=== PATIENT | female | born 1970 | race Caucasian/White ===

== ENCOUNTER 2017-05-07 02:59 | Emergency (ER) | payer OTHER ==
--- NOTE | 2017-05-07 03:23 | ER Document Report ---
ED NIH Stroke Scale - NIH Stroke Scale *: 1. NIH scale should be completed with appropriate accompanying assessment tools. *: 2. The NIH should reflect what the patient is capable of doing and should not be coached by the clinician. 1a. Level of Consciousness: 0=Alert;keenly responsive -: 1=Drowsy -: 2=Obtunded -: 3=Coma/unresponsive or reflex to noxious stimuli. 1a. Responses: 0 1b. Orientation Questions: a. What month is it? -: b. How old are you? -: 0=Answers both questions correctly. -: 1=Answers one question correctly or patient is intubated or has orotracheal trauma. -: 2=Answers neither question correctly. 1b. Responses: 0 1c. Response to commands: a. Open and close eyes? -: b. Therapy Site Coordinator and release hand? -: Credit is given despite weakness. Demonstration of task is permitted. Substitute command if hands cannot be used. -: 0=Performs both tasks correctly -: 1=Performs one task correctly -: 2=Performs neither task correctly 1c. Responses: 0 2. Gaze: Establish eye contact and instruct patient to "Follow my finger" -: 0=Normal -: 1=Partial gaze palsy. Gaze is abnormal in one or both eyes, but where forced deviation or total gaze paresis is not present. -: 2=Forced deviation or total gaze paresis. 2. Responses: 0 3. Visual Rudolph: Sees fingers in all four quadrants. -: 0=No visual loss. -: 1=Partial hemianopsia. -: 2=Complete hemianopsia. -: 3=Bilateral hemianopsia (including Cortical blindness) 3. Responses: 0 4. Facial Movement: Instruct patient to: -: a. Show me your teeth -: b. Raise your eyebrows -: c. Close your eyes -: d. Smile -: 0=Normal symmetrical movement -: 1=Minor paralysis (flattened nasolabial fold, asymmetry on smiling). -: 2=Partial paralysis (total or near total paralysis of lower face). -: 3=Complete paralysis of upper and lower face 4. Responses: 2 5. Motor functions (left arm): Alternate sides and extend each arm with palms down (90 degrees if sitting or 45 degrees for supine). -: 0=No drift;limb holds for full 10 seconds. -: 1=Drift; limb holds but drifts down before full 10 seconds, but does not hit bed. -: 2=Some effort against gravity; limb cannot get to or maintain position. -: 3=No effort against gravity; limb falls. -: 4=No movement. -: UN=Amputation, joint fusion, explain in comments. 5. Responses (left arm): 1 5. Motor Functions (right arm): Alternate sides and extend each arm with palms down (90 degrees if sitting or 45 degrees for supine). -: 0=No drift;limb holds for full 10 seconds. -: 1=Drift; limb holds but drifts down before full 10 seconds, but does not hit bed. -: 2=Some effort against gravity; limb cannot get to or maintain position. -: 3=No effort against gravity; limb falls. -: 4=No movement. -: UN=Amputation, joint fusion, explain in comments. 5. Responses (right arm): 0 6. Motor Functions (left leg): With patient lying supine, alternate sides and extend each leg (30 degrees always while supine). -: 0=No drift, leg holds position for full 5 seconds -: 1=Drift; leg falls before full 5 seconds but does not hit bed. -: 2=Some effort against gravity, leg falls to bed but some effort against gravity. -: 3=No effort against gravity, leg falls to bed immediately. -: 4=No movement. -: UN=Amputation, joint fusion; explain in comments. 6. Responses (left leg): 2 6. Motor Functions (right leg): With patient lying supine, alternate sides and extend each leg (30 degrees always while supine). -: 0=No drift, leg holds position for full 5 seconds -: 1=Drift; leg falls before full 5 seconds but does not hit bed. -: 2=Some effort against gravity, leg falls to bed but some effort against gravity. -: 3=No effort against gravity, leg falls to bed immediately. -: 4=No movement. -: UN=Amputation, joint fusion; explain in comments. 6. Responses (right leg): 0 7. Limb Ataxia: With eyes open instruct patient to: -: a. "Touch your finger to your nose". -: b. "Touch your heel to your melendrez" -: 0=Absent -: 1=Present in one limb. -: 2=Present in two limbs. -: UN=Amputation or joint fusion; explain in comments. 7. Responses: 1 7. If ataxia present choose as appropriate: Left leg 8. Sensory: Test sensation using pinprick or noxious stimuli. Test as many body parts as possible. -: 0=Normal;no sensory loss -: 1=Mile to moderate sensory loss (patient feels pin prick but is less sharp on affected side). -: 2=Severe or total sensory loss. 8. Responses: 1 9. Best Language: Instruct patient to: -: a. "Describe what you see in this picture." -: b. "Name the items in this picture." -: c. "Read these sentences." -: 0=No aphasia, normal -: 1=Mild to moderate aphasia. -: 2=Severe aphasia -: 3=Mute, global aphasia, no usable speech or auditory comprehension. 9. Responses: 1 10. Articulation, Dysarthia: Instruct patient to: -: "Read these words" or "Repeat these words" -: 0=Normal -: 1=Mild to moderate; patient may slur some words but can be understood without difficulty. -: 2=Severe; patients speech so slurred as to be unintelligible in the absence of dysphasia. -: UN=Intubated or other physical barrier, explain in comments. 10. Responses: 1 11. Extinction or inattention: 0=No abnormality -: 1= Visual, tactile, auditory, spatial, or personal inattention or extinction to bilateral simulation in one or the sensory modalities. -: 2=Profound delfin-inattention or delfin-inattention to more than one modality; does not recognize own hand. 11. Responses: 0 Total Score: 9
--- NOTE | 2017-05-07 03:23 | RADIOLOGY REPORT (SQ) ---
EXAM DESCRIPTION: CT HEAD WITHOUT COMPLETED DATE/TIME: 05/07/2017 3:07 am REASON FOR STUDY: stroke alert , weakness left side. History of TIA. COMPARISON: None. TECHNIQUE: Axial images acquired through the brain without intravenous contrast. Images reviewed wi th bone, brain and subdural windows. Images stored on PACS. All CT scanners at this facility use dose modulation, iterative reconstruction, and/or weight based d osing when appropriate to reduce radiation dose to as low as reasonably achievable (ALARA). [facility]: Dose Right [facility]: CareDose [facility]: Dose Right [facility]: Teradose 4D [facility]: [employer] RADIATION DOSE: mGy. LIMITATIONS: Motion artifact. FINDINGS: VENTRICLES: Normal size and contour. CEREBRUM: No mass effect. No hemorrhage. No midline shift. Normal kaminski/white matter differentiatio n. No evidence for acute territorial infarction. CEREBELLUM: No mass effect. No hemorrhage. No alteration of density. No evidence for acute infarct ion. EXTRAAXIAL SPACES: No fluid collections. ORBITS AND GLOBE: Symmetrical contour of the globes. CALVARIUM: No depressed skull fracture. PARANASAL SINUSES: Mucous retention cysts/ polyps in the right sphenoid sinus and left maxillary sinu s. Mucosal thickening in the left sphenoid sinus. SOFT TISSUES: No hematoma. IMPRESSION: No acute intracranial hemorrhage or acute territorial infarct. If clinical concern pers ists, MRI can be obtained for further evaluation. COMMENT: Pertinent positive or negative findings of the imaging study reported as a CRITICAL EXAM to REGINA TORRES DO at03:15 hours on 05/07/2017. Category of Critical Exam: Stroke alert TECHNICAL DOCUMENTATION: JOB ID: [id number] Quality ID # [id number]: Final reports with documentation of one or more dose reduction techniques (e.g., Au tomated exposure control, adjustment of the mA and/or kV according to patient size, use of iterative reconstruction technique) 2010 [employer]- All Rights Reserved
--- NOTE | 2017-05-07 03:30 | ER Document Report ---
ED General - General Chief Complaint: S/S of Possible Stroke Stated Complaint: STROKE SYMPTOMS Time Seen by Provider: 05/07/17 03:00 Notes: Patient is a 46-year-old female presents with strokelike symptoms. She has previous history of TIA but no lasting deficits. She has a history of a aortic valve replacement and is on Coumadin for this. She is followed by [facility] for this. No headache. No vomiting. Patient says that she went to bed 11 PM. She says she woke up at 2 AM and realized when she got up to walk that she was having difficulty walking and cannot hold onto her ashtray. She is on Coumadin. She is unsure when her last INR was. She says her Coumadin level does fluctuate. She denies any recent fevers or infections. No other complaints at this time. TRAVEL OUTSIDE OF THE [place] IN LAST 30 DAYS: No - Related Data Allergies/Adverse Reactions: acetaminophen [From Percocet] Allergy (Unknown, Verified 05/07/17 04:28) oxycodone [From Percocet] Allergy (Unknown, Verified 05/07/17 04:28) Past Medical History - Social History Smoking Status: Current Every Day Smoker Frequency of alcohol use: None Drug Abuse: None Family History: Reviewed & Not Pertinent Review of Systems - Review of Systems Notes: My Normal Review Basic REVIEW OF SYSTEMS: CONSTITUTIONAL : Denies fever, chills, or sweats. Denies recent illness. EENT: Denies eye, ear, throat, or mouth pain or symptoms. Denies nasal or sinus congestion. CARDIOVASCULAR: Denies chest pain. RESPIRATORY: Denies cough, cold, or chest congestion. Denies shortness of breath, difficulty breathing, or wheezing. GASTROINTESTINAL: Denies abdominal pain. Denies nausea, vomiting, or diarrhea. Denies constipation. Last BM: GENITOURINARY: Denies difficulty urinating, painful urination, burning, frequency, or blood in urine. MUSCULOSKELETAL: Denies neck or back pain or joint pain or swelling. SKIN: Denies rash or skin lesions. HEMATOLOGIC : On Coumadin. NEUROLOGICAL: Denies altered mental status or loss of consciousness. Denies headache. Left sided weakness. PSYCHIATRIC: Denies anxiety or stress or depression. ALL OTHER SYSTEMS REVIEWED AND NEGATIVE. Physical Exam - Vital signs Vitals: Temp Pulse Resp BP Pulse Ox 98.8 F 74 19 126/78 H 100 05/07/17 03:07 05/07/17 03:07 05/07/17 03:07 05/07/17 03:07 05/07/17 03:07 - Notes Notes: General Appearance: Well nourished, alert, cooperative, no acute distress, no obvious discomfort. Vitals: reviewed, See vital signs table. Head: no swelling or tenderness to the head Eyes: PERRL, EOMI, Conjuctiva clear Mouth: No decreasd moisture Throat: No tonsillar inflammation, No airway obstruction, No lymphadenopathy Neck: Supple, no neck tenderness, Lungs: No wheezing, No rales, No rhonci, No accessory muscle use, good air exchange bilaterally. Heart: Normal rate, Regular rythm, No murmur, no rub Abdomen: Normal BS, soft, No rigidity, No abdominal tenderness, No guarding, no rebound, no abdominal masses, no organomegaly Extremities: strength 5/5 in all extremities, good pulses in all extremities, no swelling or tenderness in the extremities, no edema. Skin: warm, dry, appropriate color, no rash Neuro: speech is slurred, oriented x 3, normal affect, responds appropriately to questions. Cranial nerves are affected. She has facial droop on the left side. She has good bilateral frontalis muscle movement. She does have some dysarthria when she talks. She has some drift of her left arm when she raises off the bed. She does have normal splitter head strength in left hand. She is unable to fully lift the left leg off the bed. Slight distal sensation diminishment on the left side. Course - Re-evaluation Re-evalutation: 05/07/17 03:31 I immediately evaluate the patient. We sent a CT scan. CT scan was negative for bleeding. I did talk to the patient. Her last known time well was 11 PM. This puts her outside thrombolytic window. Also she is on Coumadin which most likely will make her not a candidate for thrombolysis. I therefore called [facility] and spoke with Dr. Benjamin, neurologist, and asked her about the potential of mechanical intervention. She said that the would be happy to accept her and evaluate her to see if this is a possibility. 05/07/17 03:38 Patient's INR came back at 0.88. The suggest that she probably has not been taking her Coumadin. This would explain why she most likely has had a stroke being that she has mechanical heart valve and she is not anticoagulated. Patient is still not a candidate for thrombolytics due to the timeframe. I did explained to the patient the plan of transferring her. She is agreeable to this. I explained to the family as well. They are agreeable to it. An ambulance will be here in 1 hour to transfer her. 05/07/17 04:03 I did call and speak with Dr. Benjamin again because of my concern that the patient 's INR is only 0.88. Asked her if I should be given the patient Lovenox or heparin for anticoagulation. She says that they should not give heparin or Lovenox as this could lead to the patient having some form of hemorrhage. She says they will reassess the patient when they get to [place] determine what kind of anticoagulation the patient should get after an MRI and CTA. 05/07/17 04:49 Patient's neuro exam remains unchanged. She continues to have left-sided facial droop. She continues to have weakness in her left arm and left leg. No new deficits. 05/07/17 04:50 05/07/17 05:24 Transport has arrived to take the patient to [facility]. I did a final reevaluation of the patient. Symptoms remain the same. No progression or improvement of the her neurologic exam. - Vital Signs Vital signs: Temp Pulse Resp BP Pulse Ox 98.8 F 64 20 120/98 H 97 05/07/17 03:07 05/07/17 03:30 05/07/17 03:30 05/07/17 03:30 05/07/17 03:30 - Laboratory Result Diagrams: 05/07/17 03:14 05/07/17 03:14 Laboratory results interpreted by me: 05/07/17 05/07/17 05/07/17 03:14 03:14 04:20 Hgb 11.7 L Hct 35.9 L RDW 16.7 H Potassium 3.3 L Chloride 114 H Carbon Dioxide 20 L Calcium 8.1 L Total Protein 5.4 L Albumin 3.1 L Urine Nitrite POSITIVE H - EKG Interpretation by Me Additional EKG results interpreted by me: 05/07/17 03:32 EKG is reviewed and interpreted by me. EKG shows normal sinus rhythm with rate of 66 bpm. Occasional PVC. UT interval, QTc intervals are within normal range. QRS duration is slightly prolonged. No old EKG available for comparison. Discharge - Discharge Clinical Impression: Stroke Qualifiers: CVA mechanism: unspecified Qualified Code(s): I63.9 - Cerebral infarction, unspecified Condition: Stable Disposition: [facility]
[2017-05-07 03:34] LABS: ABSOLUTE LYMPHOCYTES (AUTO) 3.2 10^3/uL (0.5-4.7); ABSOLUTE MONOCYTES (AUTO) 0.7 10^3/uL (0.1-1.4); ABSOLUTE NEUT (AUTO) 6.2 10^3/uL (1.7-8.2); BASOPHILS % (AUTO) 0.4 % (0-2); EOSINOPHILS % (AUTO) 0.5 % (0-6); HEMATOCRIT 35.9 % (36.0-47.0); HEMOGLOBIN 11.7 g/dL (12.0-15.5); HGB HCT DIFFERENCE -0.8; LYMPHOCYTES % (AUTO) 31.3 % (13-45); MEAN CORPUSCULAR HGB CONC 32.5 g/dL (32.0-36.0); MEAN CORPUSCULAR VOLUME 89 fl (80-97); MONOCYTES % (AUTO) 6.5 % (3-13); RED BLOOD COUNT 4.03 10^6/uL (3.72-5.28); RED CELL DISTRIBUTION WIDTH 16.7 % (11.5-14.0); SEGMENTED NEUTROPHILS % (AUTO) 61.3 % (42-78); WHITE BLOOD COUNT 10.1 10^3/uL (4.0-10.5)
--- NOTE | 2017-05-07 03:36 | RADIOLOGY REPORT (SQ) ---
EXAM DESCRIPTION: CHEST SINGLE VIEW COMPLETED DATE/TIME: 05/07/2017 3:25 am REASON FOR STUDY: STROKE COMPARISON: None. EXAM PARAMETERS: NUMBER OF VIEWS: One view. TECHNIQUE: Single frontal radiographic view of the chest acquired. RADIATION DOSE: NA LIMITATIONS: None. FINDINGS: LUNGS AND PLEURA: No consolidation, pneumothorax or pleural effusion. MEDIASTINUM AND HILAR STRUCTURES: No masses. Contour normal. HEART AND VASCULAR STRUCTURES: The heart is mildly enlarged. There is no overt vascular congestion. BONES: No acute findings. HARDWARE: Sternotomy wires and cardiac valve prosthesis are noted. IMPRESSION: Mild cardiomegaly. No consolidation or pleural effusion. TECHNICAL DOCUMENTATION: JOB ID: [id number]
[2017-05-07 03:38] LABS: PARTIAL THROMBOPLASTIN TIME 27.5 SEC (23.5-35.8); PROTHROMBIN TIME 12.6 SEC (11.4-15.4)
[2017-05-07] MEDS ORDERED: ASPIRIN 325 MG TABLET PO ONE (03:40)
[2017-05-07 03:50] LABS: ALANINE AMINOTRANSFERASE 33 U/L (9-52); ALBUMIN 3.1 g/dL (3.5-5.0); ALKALINE PHOSPHATASE 57 U/L (38-126); ANION GAP 7 (5-19); ASPARTATE AMINO TRANSFERASE 17 U/L (14-36); BILIRUBIN,DIRECT 0.3 mg/dL (0.0-0.4); BILIRUBIN,TOTAL 0.4 mg/dL (0.2-1.3); BLOOD UREA NITROGEN 9 mg/dL (7-20); CALCIUM 8.1 mg/dL (8.4-10.2); CARBON DIOXIDE 20 mmol/L (22-30); CHLORIDE 114 mmol/L (98-107); CREATININE RESULT 0.64 mg/dL (0.52-1.25); GLUCOSE 89 mg/dL (75-110); POTASSIUM 3.3 mmol/L (3.6-5.0); SODIUM 140.5 mmol/L (137-145); TOTAL PROTEIN 5.4 g/dL (6.3-8.2)
[2017-05-07 05:01] LABS: APPEARANCE,URINE SLIGHTLY-CLOUDY; BILIRUBIN,URINE NEGATIVE (NEGATIVE); GLUCOSE, URINE NEGATIVE (NEGATIVE); KETONES,URINE NEGATIVE (NEGATIVE); LEUKOCYTE ESTERASE,URINE NEGATIVE (NEGATIVE); NITRITE,URINE POSITIVE (NEGATIVE); PROTEIN,URINE NEGATIVE (NEGATIVE); URINE SPECIFIC GRAVITY 1.008; UROBILINOGEN,URINE NEGATIVE mg/dL (<2.0)
[2017-05-07 05:36] VITALS: BP 124/68
--- NOTE | 2017-05-07 07:23 | EKG REPORT ---
SEVERITY:- ABNORMAL ECG - SINUS RHYTHM MULTIFORM VENTRICULAR PREMATURE COMPLEXES LEFT ANTERIOR FASCICULAR BLOCK CONSIDER ANTEROSEPTAL INFARCT : Confirmed by: Eugenia Kaur 07-May-2017 07:22:29
== END 2017-05-07 05:36 | disposition short-term general hospital (02) ==
LOC: ER 02:59
DX: I63.9 Cerebral infarction, unspecified (principal); R26.2 Difficulty in walking, not elsewhere classified; Z86.73 Personal history of transient ischemic attack (TIA), and cerebral infarction without residual deficits; Z95.2 Presence of prosthetic heart valve; Z79.02 Long term (current) use of antithrombotics/antiplatelets; Z88.6 Allergy status to analgesic agent
CPT/HCPCS: 36415; 70450; 71010; 80053; 81001; 85025; 85610; 85730; 93005; 93010; 99285

== ENCOUNTER → 2017-10-18 | Outpatient (CLI) | payer OTHER | LOC: WI 10:57 | PROVIDERS: ATTEND Internal Medicine | DX: Z12.31 Encounter for screening mammogram for malignant neoplasm of breast (principal) | CPT/HCPCS: 77067; G0202 ==